=== PATIENT | male | born 1995 | race Caucasian/White ===

== ENCOUNTER 2018-01-17 15:47 | Emergency (ER) | payer SELFPAY ==
--- NOTE | 2018-01-17 16:50 | RAD ---
PA CHEST AND RIGHT RIB SERIES: HISTORY: Fall. Right-sided chest pain. FINDINGS: The heart size is normal. The lungs are well expanded without lobar consolidation, pneumothoraces, o r pleural effusions. No right-sided rib fracture is seen. POS: [facility]
== END 2018-01-17 17:12 | disposition home or self-care (01) ==
LOC: ERS 15:47
DX: S20.211A Contusion of right front wall of thorax, initial encounter (principal); F17.200 Nicotine dependence, unspecified, uncomplicated; E05.90 Thyrotoxicosis, unspecified without thyrotoxic crisis or storm; Z71.6 Tobacco abuse counseling; W10.9XXA Fall (on) (from) unspecified stairs and steps, initial encounter
CPT/HCPCS: 99406